=== PATIENT | female | born 1980 | race Caucasian/White ===

== ENCOUNTER 2018-07-25 08:43 | Observation (INO) | payer OTHER ==
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
[2018-07-25] MEDS ORDERED: ONDANSETRON 4 MG/2 ML VIAL IVP ONE (08:53)
[2018-07-25] MEDS ORDERED: ONDANSETRON 4 MG/2 ML VIAL ONE (08:54)
[2018-07-25] MEDS ORDERED: NALOXONE HCL 0.4 MG/ML INJ IVP PRN (08:57)
[2018-07-25] MEDS ORDERED: ONDANSETRON 4 MG/2 ML VIAL IVP PRN (08:57)
[2018-07-25 09:05] LABS: PLATELET COUNT 192 10^3/uL (150-400)
[2018-07-25] MEDS ORDERED: fentaNYL 100 MCG/2 ML INJ ONE (09:08)
[2018-07-25] MEDS ORDERED: fentaNYL 100 MCG/2 ML INJ IVP ONE (09:10)
[2018-07-25] MEDS ORDERED: HYDROmorphONE/DILAUDID 1 MG/ML INJ ONE (09:52)
[2018-07-25] MEDS ORDERED: HYDROmorphONE/DILAUDID 1 MG/ML INJ IVP ONE ×2 (09:57→11:29)
[2018-07-25] MEDS ORDERED: LET GEL TOPICAL 1 EA SYR TP ONE ×2 (10:31)
[2018-07-25] MEDS ORDERED: D5W 1/2 NS W/ 20 KCl/L 1,000 ML IV SCH (11:15)
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
--- NOTE | 2018-07-25 11:54 | ASMTLACE ---
[facility] # of Emergency department Answers: 1-2 visits in the last 6 months Score: 1 Date Signed: 07/25/2018 11:54 AM Electronically Signed By:Katelin Chaparro RN
[2018-07-25] MEDS ORDERED: ACETAMINOPHEN 650 MG/20.3 ML UDCUP PO PRN (12:46)
[2018-07-25] MEDS ORDERED: HYDROCOD/APAP 7.5/325 IN 15ML UDCUP PO PRN (12:47)
--- NOTE | 2018-07-25 12:50 | TRAUMAPN ---
Trauma Progress Note Assessment/Plan: I cleared collar at 12:49 pm. Muscle tightness but no pain Objective: Vital Signs Temp Pulse Resp BP Pulse Ox 37.4 C 67 16 114/63 94 07/25/18 11:15 07/25/18 11:15 07/25/18 11:15 07/25/18 11:15 07/25/18 11:15
[2018-07-25] MEDS: KETOROLAC 15 MG/1 ML SDV IVP PRN (17:31)
[2018-07-25] MEDS ORDERED: LIDOCAINE 1% 300 MG/30 ML SDV ONE (18:36)
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
[2018-07-25] MEDS: HYDROCOD/APAP 7.5/325 IN 15ML UDCUP PO PRN (22:14)
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
[2018-07-26 04:50] LABS: PLATELET COUNT 179 10^3/uL (150-400)
[2018-07-26] MEDS: KETOROLAC 15 MG/1 ML SDV IVP PRN (05:34)
[2018-07-26] MEDS: HYDROCOD/APAP 7.5/325 IN 15ML UDCUP PO PRN ×2 (05:35→10:13)
[2018-07-26 07:59] VITALS: BP 94/63
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
--- NOTE | 2018-07-26 11:18 | SOAPPROG ---
SOAP Progress Note Assessment/Plan: Pt complained of R ankle pain this am. 3 way ankle xray reveals possible posterior talar fracture and soft tissue findings consistent with ankle sprain. Noncontrast CT scan recommended for further evaluation. Discussed with RN. Per RN, pt chose to leave prior to receiving xray results despite RN's efforts to have pt stay. Message left for pt regarding xray results. Will attempt to reach pt again. 07/26/18 11:15 Objective: Vital Signs Temp Pulse Resp BP Pulse Ox 37.2 C 79 14 94/63 L 94 07/26/18 07:57 07/26/18 07:57 07/26/18 07:57 07/26/18 07:57 07/26/18 07:57 Laboratory Results 07/26/18 04:28 07/26/18 04:28 07/25/18 07/26/18 07/27/18 05:59 05:59 05:59 Intake Total 1250 Balance 1250 ICD10 Worksheet Patient Problems: Problems Problem Status Onset Concussion Acute Facial fracture Acute Facial laceration Acute Lip laceration Acute
== END 2018-07-26 10:34 | disposition home or self-care (01) ==
LOC: EDBD 08:54 → F2N 12:13 → F3N 20:30
PROVIDERS: ADMIT Surgery; ATTEND Surgery
PROC: 0CQ0XZZ Repair Upper Lip, External Approach (ICD-10-PCS; principal; 2018-07-25)
PROC: 0HQ1XZZ Repair Face Skin, External Approach (ICD-10-PCS; principal; 2018-07-25)
DX: S06.0X0A Concussion without loss of consciousness, initial encounter (principal); S01.112A Laceration without foreign body of left eyelid and periocular area, initial encounter; S01.511A Laceration without foreign body of lip, initial encounter; S03.03XA Dislocation of jaw, bilateral, initial encounter; S52.612A Displaced fracture of left ulna styloid process, initial encounter for closed fracture; S02.5XXA Fracture of tooth (traumatic), initial encounter for closed fracture; S02.82XA Fracture of other specified skull and facial bones, left side, initial encounter for closed fracture; S02.31XA Fracture of orbital floor, right side, initial encounter for closed fracture; S02.40DA Maxillary fracture, left side, initial encounter for closed fracture; S02.2XXA Fracture of nasal bones, initial encounter for closed fracture; V13.4XXA Pedal cycle driver injured in collision with car, pick-up truck or van in traffic accident, initial encounter; Y93.55 Activity, bike riding; Y92.414 Local residential or business street as the place of occurrence of the external cause; E86.9 Volume depletion, unspecified
CPT/HCPCS: 12011; 13131; 70450; 70486; 71045; 72125; 73030; 73110; 73610; 92523; 92610; 96374; 96375; 96376; 97162; 97166; 99285; G0378; 82435-PO; 82565-PO; 82947-PO; 84132-PO; 84295-PO; 84520-PO; 85014-ER; J1170; J1885; J2405; J3010; L0172